=== PATIENT | female | born 1990 | race Two or more races ===

== ENCOUNTER 2019-10-28 06:33 | Inpatient (IN) | payer OTHER, BC ==
[~2019-10-28] VITALS: Ht 157.5 cm; Wt 62.7 kg
[2019-10-28] MEDS: OXYTOCIN 30U/ 0.9% NaCL 500ML 500 ML IV SCH (00:45)
[2019-10-28 07:43] VITALS: BP 111/70
[2019-10-28] MEDS ORDERED: OXYTOCIN 30U/ 0.9% NaCL 500ML 500 ML IV ONE (08:08)
[2019-10-28] MEDS ORDERED: OXYTOCIN 30U/ 0.9% NaCL 500ML 500 ML IV PRN (08:08)
[2019-10-28] MEDS ORDERED: TERBUTALINE 1 MG/ML, 1ML SQ PRN (08:30)
[2019-10-28] MEDS ORDERED: TERBUTALINE 1 MG/ML, 1ML IVPush PRN (08:30)
[2019-10-28] MEDS ORDERED: ONDANSETRON 2MG/ML, 2ML IVPush PRN (08:30)
[2019-10-28] MEDS: LACTATED RINGERS 1,000 ML IV SCH ×2 (08:51→16:00)
[2019-10-28] MEDS ORDERED: LIDOCAINE 1%, 20ML ONE ×2 (08:54→16:05)
[2019-10-28] MEDS ORDERED: OXYTOCIN 30U/ 0.9% NaCL 500ML 500 ML ONE ×2 (08:54→22:40)
[2019-10-28] MEDS ORDERED: NEWBORN KIT ONE (08:55)
[2019-10-28] MEDS ORDERED: MISOPROSTOL 200 MCG TABLET ONE (08:55)
[2019-10-28 09:02] LABS: BASOPHILS # (AUTO) 0.06 x10^3/uL (0-0.1); BASOPHILS % (AUTO) 1 % (0-1); EOSINOPHILS % (AUTO) 1 % (1-7); LYMPHOCYTES # (AUTO) 1.57 x10^3/uL (1-3.4); LYMPHOCYTES % (AUTO) 16 % (22-44); MD NO; MEAN CORPUSCULAR HEMOGLOBIN 29.2 pg (27.0-34.8); MEAN CORPUSCULAR HGB CONC 32.3 g/dL (32.4-35.8); MEAN CORPUSCULAR VOLUME 90.2 fL (80-100); MEAN PLATELET VOLUME 8.5 fL (7.4-10.4); MONOCYTES % (AUTO) 6 % (2-9); NEUTROPHILS # (AUTO) 7.81 x10^3/uL (1.8-6.8); NEUTROPHILS % (AUTO) 77 % (42-75); PLATELET COUNT 253 x10^3/uL (130-400); RED BLOOD COUNT 4.76 x10^6/uL (3.82-5.3); RED CELL DISTRIBUTION WIDTH 16.8 % (9.6-15.2)
[2019-10-28] MEDS ORDERED: FENTANYL PF 100 MCG/2ML ONE ×2 (12:13→14:04)
[2019-10-28] MEDS: FENTANYL PF 100 MCG/2ML IVPush PRN ×2 (12:14→14:06)
[2019-10-28] MEDS ORDERED: FENTANYL/BUPIV./NS/PF 250 ML EPIDCONT ONE (16:03)
[2019-10-28] MEDS ORDERED: LIDOCAINE/PF 1.5%-EPI 1:200K, 30ML ONE (16:05)
[2019-10-28] MEDS ORDERED: D5%-LACTATED RINGERS 1,000 ML IV SCH (19:31)
[2019-10-28] MEDS ORDERED: ACETAMINOPHEN 325 MG TABLET ONE (19:47)
[2019-10-28] MEDS ORDERED: AMPICILLIN 2 GM in SODIUM CHLORIDE 0.9% 100 ML IV ONE (20:00)
[2019-10-28] MEDS ORDERED: ACETAMINOPHEN 325 MG TABLET PO PRN ×3 (20:00→22:30)
[2019-10-28] MEDS ORDERED: METHYLERGONOVINE 0.2 MG/ML IM PRN (22:30)
[2019-10-28] MEDS ORDERED: MISOPROSTOL 200 MCG TABLET PR PRN (22:30)
[2019-10-28] MEDS ORDERED: DOCUSATE 100 MG CAPSULE PO PRN (22:30)
[2019-10-28] MEDS ORDERED: ONDANSETRON 2MG/ML, 2ML IV PRN (22:30)
[2019-10-28] MEDS ORDERED: RHOGAM FROM BLOOD BANK 1 NOTE EA IM/IV ONE (22:30)
[2019-10-28] MEDS ORDERED: SIMETHICONE 80 MG CHEW TAB PO PRN (22:30)
[2019-10-28] MEDS ORDERED: HYDROcodone/APAP 5/325 TABLET PO PRN ×2 (22:30)
[2019-10-28] MEDS ORDERED: CARBOPROST TROMETHAMINE 250 MCG/ML, 1ML IM PRN (22:30)
[2019-10-29 00:45] VITALS: BP 101/52
[2019-10-29] MEDS: LACTATED RINGERS 1,000 ML IV SCH ×3 (00:45→16:08)
[2019-10-29 03:00] VITALS: BP 99/60
[2019-10-29 06:45] LABS: MEAN CORPUSCULAR HEMOGLOBIN 29.5 pg (27.0-34.8); MEAN CORPUSCULAR HGB CONC 32.8 g/dL (32.4-35.8); MEAN CORPUSCULAR VOLUME 90.1 fL (80-100); MEAN PLATELET VOLUME 8.4 fL (7.4-10.4); PLATELET COUNT 190 x10^3/uL (130-400); RED BLOOD COUNT 4.45 x10^6/uL (3.82-5.3); RED CELL DISTRIBUTION WIDTH 16.5 % (9.6-15.2)
[2019-10-29 07:13] LABS: BASOPHILS # (AUTO) 0.07 x10^3/uL (0-0.1); BASOPHILS % (AUTO) 0 % (0-1); EOSINOPHILS # (AUTO) 0.05 x10^3/uL (0-0.4); EOSINOPHILS % (AUTO) 0 % (1-7); LYMPHOCYTES # (AUTO) 1.52 x10^3/uL (1-3.4); LYMPHOCYTES % (AUTO) 8 % (22-44); MD SCAN; MONOCYTES # (AUTO) 1.22 x10^3/uL (0.2-0.8); MONOCYTES % (AUTO) 7 % (2-9); NEUTROPHILS # (AUTO) 15.38 x10^3/uL (1.8-6.8); NEUTROPHILS % (AUTO) 84 % (42-75)
[2019-10-29] MEDS: IBUPROFEN 600 MG TABLET PO PRN ×2 (07:53→22:45)
[2019-10-29] MEDS: PRENATAL VIT/IRON/FA 1 EACH TABLET PO SCH (07:54)
[2019-10-29] MEDS: OXYTOCIN 30U/ 0.9% NaCL 500ML 500 ML IV SCH ×2 (08:25→18:25)
[2019-10-29 09:15] VITALS: BP 99/61
[2019-10-29] MEDS: AMOXICILLIN 500 MG CAPSULE PO SCH ×3 (11:06→21:18)
[2019-10-29 12:00] VITALS: BP 99/65
[2019-10-29 16:00] VITALS: BP 118/77
[2019-10-29] MEDS ORDERED: RHOGAM FROM BLOOD BANK 1 NOTE EA IM/IV ONE (17:00)
[2019-10-29 20:00] VITALS: BP 108/69
[2019-10-29] MEDS ORDERED: AMOXICILLIN 500 MG CAPSULE ONE (21:17)
[2019-10-30] MEDS: LACTATED RINGERS 1,000 ML IV SCH ×2 (00:08→08:08)
[2019-10-30] MEDS: OXYTOCIN 30U/ 0.9% NaCL 500ML 500 ML IV SCH (03:37)
[2019-10-30 07:05] VITALS: BP 109/66
[2019-10-30] MEDS: PRENATAL VIT/IRON/FA 1 EACH TABLET PO SCH (08:09)
[2019-10-30] MEDS: AMOXICILLIN 500 MG CAPSULE PO SCH (08:09)
[2019-10-30] MEDS ORDERED: AMOX-291 PO (09:33)
[2019-10-30] MEDS ORDERED: DIPH,PERTUSS(ACELL),TET VAC/PF NC IM-VACC ONE (10:00)
== END 2019-10-30 13:35 | disposition home or self-care (01) | DRG 807 ==
LOC: LDOP 06:33 → LDIP 08:16 → 2NW 10-29 00:15
PROVIDERS: ADMIT Obstetrics & Gynecology; ATTEND Obstetrics & Gynecology
PROC: 10E0XZZ Delivery of Products of Conception, External Approach (ICD-10-PCS; principal; 2019-10-28)
PROC: 3E0234Z Introduction of Serum, Toxoid and Vaccine into Muscle, Percutaneous Approach (ICD-10-PCS; 2019-10-28)
PROC: 3E0R3BZ Introduction of Anesthetic Agent into Spinal Canal, Percutaneous Approach (ICD-10-PCS; 2019-10-28)
PROC: 00HU33Z Insertion of Infusion Device into Spinal Canal, Percutaneous Approach (ICD-10-PCS; 2019-10-28)
DX: O26.893 Other specified pregnancy related conditions, third trimester (principal); Z37.0 Single live birth; Z3A.39 39 weeks gestation of pregnancy; Z67.31 Type AB blood, Rh negative
CPT/HCPCS: 36415; J3490; J7121; 84112; 85025; 85461; 86592; 86850; 86900; 87070; 87075; 87205; 90715; G0378; J0290; J2790; J3010; J2590; J7120

== ENCOUNTER 2019-11-03 04:45 | Emergency (ER) | payer OTHER, BC ==
[~2019-11-03] VITALS: Ht 157.5 cm; Wt 57.2 kg
[~2019-11-03 04:45] MED LIST: AMOX-291 PO
--- NOTE | 2019-11-03 05:06 | NUR ---
PT REPORTS HEAVY VAGINAL BLEEDING WITH CLOTS SINCE AROUND 0400, ALSO C/O LIGHT DIZZINESS AND ABD PAIN. HAD VAGINAL DELIVERY ON 10/28/2019. PLACED PT ON CARDIAC AND VITALS SIGNS MONITOR.
--- NOTE | 2019-11-03 05:24 | NUR ---
PT TAKEN TO ULTRASOUND.
--- NOTE | 2019-11-03 06:16 | NUR ---
URINE SAMPLE COLLECTED. LAB AT BEDSIDE.
[2019-11-03 06:33] LABS: BASOPHILS # (AUTO) 0.05 x10^3/uL (0-0.1); BASOPHILS % (AUTO) 1 % (0-1); EOSINOPHILS # (AUTO) 0.26 x10^3/uL (0-0.4); EOSINOPHILS % (AUTO) 3 % (1-7); LYMPHOCYTES # (AUTO) 1.69 x10^3/uL (1-3.4); LYMPHOCYTES % (AUTO) 18 % (22-44); MD NO; MEAN CORPUSCULAR HEMOGLOBIN 29.2 pg (27.0-34.8); MEAN CORPUSCULAR HGB CONC 32.1 g/dL (32.4-35.8); MONOCYTES # (AUTO) 0.65 x10^3/uL (0.2-0.8); MONOCYTES % (AUTO) 7 % (2-9); NEUTROPHILS # (AUTO) 6.67 x10^3/uL (1.8-6.8); NEUTROPHILS % (AUTO) 72 % (42-75); PLATELET COUNT 227 x10^3/uL (130-400); RED BLOOD COUNT 4.62 x10^6/uL (3.82-5.3); RED CELL DISTRIBUTION WIDTH 15.9 % (9.6-15.2)
[2019-11-03 06:39] LABS: MICROSCOPIC AUTO
--- NOTE | 2019-11-03 06:51 | NUR ---
RECEIVED REPORT FROM NAOMI
--- NOTE | 2019-11-03 07:01 | NUR ---
PT UPRIGHT ON GURNEY AWAKE & CALM, [place]-SPEAKING BUT RESPONDS APPROP TO STAFF, NAD, COMFORT MEASURES PROVIDED, AT BS, CALL LIGHT WITHIN REACH.
--- NOTE | 2019-11-03 07:42 | NUR ---
dr rico spoke with dr summers home service consultant for dr nagel
[2019-11-03] MEDS ORDERED: MISOPROSTOL 200 MCG TABLET PR ONE (08:00)
[2019-11-03] MEDS ORDERED: METHYLERGONOVINE 0.2 MG/ML IM PRN (08:00)
--- NOTE | 2019-11-03 08:00 | NUR ---
PT UPRIGHT ON GURNEY AWAKE & CALM, [place]-SPEAKING BUT RESPONDS APPROP TO STAFF, NAD, COMFORT MEASURES PROVIDED INCL PERICARE & LINEN/GOWN CHANGE, AT BS, CALL LIGHT WITHIN REACH.
[2019-11-03] MEDS ORDERED: TRANEXAMIC ACID 1,000 MG in SODIUM CHLORIDE 0.9% 100 ML IV ONE (08:30)
--- NOTE | 2019-11-03 09:01 | NUR ---
PT REMAINS UPRIGHT ON GURNEY AWAKE & CALM, RESPONDS APPROP TO STAFF, NAD, COMFORT MEASURES PROVIDED INCL PERICARE & PAD CHANGE, AT BS, CALL LIGHT WITHIN REACH.
[2019-11-03 09:07] LABS: BASOPHILS # (AUTO) 0.01 x10^3/uL (0-0.1); BASOPHILS % (AUTO) 0 % (0-1); EOSINOPHILS # (AUTO) 0.21 x10^3/uL (0-0.4); EOSINOPHILS % (AUTO) 2 % (1-7); LYMPHOCYTES # (AUTO) 1.55 x10^3/uL (1-3.4); LYMPHOCYTES % (AUTO) 17 % (22-44); MD NO; MEAN CORPUSCULAR HEMOGLOBIN 29.2 pg (27.0-34.8); MEAN CORPUSCULAR HGB CONC 32.4 g/dL (32.4-35.8); MEAN PLATELET VOLUME 7.7 fL (7.4-10.4); MONOCYTES # (AUTO) 0.38 x10^3/uL (0.2-0.8); MONOCYTES % (AUTO) 4 % (2-9); NEUTROPHILS # (AUTO) 7.26 x10^3/uL (1.8-6.8); NEUTROPHILS % (AUTO) 77 % (42-75); PLATELET COUNT 215 x10^3/uL (130-400); RED BLOOD COUNT 4.58 x10^6/uL (3.82-5.3); RED CELL DISTRIBUTION WIDTH 15.7 % (9.6-15.2)
[2019-11-03 09:52] VITALS: BP 136/68
--- NOTE | 2019-11-03 10:16 | NUR ---
TASK RN: Patient/Caregiver given discharge instructions and they have confirmed that they understand the instructions. Patient ambulatory with steady gait.
== END 2019-11-03 10:17 | disposition home or self-care (01) ==
LOC: ED 07:16
DX: N92.0 Excessive and frequent menstruation with regular cycle (principal); R10.9 Unspecified abdominal pain; R42 Dizziness and giddiness
CPT/HCPCS: 36415; 76830; 81001; 85025; 86901; 96365; 96366; 96372; 99285; J2210

== ENCOUNTER 2020-03-25 05:51 | Day surgery (SDC) | payer OTHER, BC ==
[2020-03-22 16:07] LABS: BASOPHILS % (AUTO) 1 % (0-1); EOSINOPHILS % (AUTO) 2 % (1-7); LYMPHOCYTES % (AUTO) 32 % (22-44); MD NO; MEAN CORPUSCULAR HEMOGLOBIN 28.6 pg (27.0-34.8); MEAN CORPUSCULAR HGB CONC 33.4 g/dL (32.4-35.8); MEAN PLATELET VOLUME 9.3 fL (7.4-10.4); MONOCYTES % (AUTO) 7 % (2-9); NEUTROPHILS % (AUTO) 58 % (42-75); PLATELET COUNT 303 x10^3/uL (130-400); RED BLOOD COUNT 4.88 x10^6/uL (3.82-5.3); RED CELL DISTRIBUTION WIDTH 12.6 % (9.6-15.2)
[~2020-03-25] VITALS: Ht 153.7 cm; Wt 52.2 kg
[2020-03-25 06:24] VITALS: BP 110/76
[2020-03-25] MEDS ORDERED: LACTATED RINGERS 1,000 ML IV SCH (06:26)
[2020-03-25] MEDS ORDERED: CHLORHEXIDINE 15 ML UDC MM STA (06:26)
[2020-03-25] MEDS ORDERED: CHLORHEXIDINE 15 ML UDC ONE (06:33)
[2020-03-25] MEDS ORDERED: BUPIVACAINE/PF 0.25% ONE (07:01)
[2020-03-25] MEDS ORDERED: EPINEPHRINE 1 MG/ML, 1ML ONE (07:01)
[2020-03-25] MEDS ORDERED: SILVER NITRATE STICK TP ONE (07:01)
[2020-03-25] MEDS ORDERED: MIDAZOLAM 1 MG/ML, 2ML ONE (07:14)
[2020-03-25] MEDS ORDERED: LIDOCAINE-MPF 2% ,5ML ONE (07:14)
[2020-03-25] MEDS ORDERED: FENTANYL PF 100 MCG/2ML ONE (07:14)
[2020-03-25] MEDS ORDERED: CEFAZOLIN 1,000 MG ONE (08:09)
[2020-03-25] MEDS ORDERED: PROPOFOL 10 MG/ML, 20ML ONE (08:09)
[2020-03-25] MEDS ORDERED: NEOSTIGMINE 1 MG/ML, 10ML ONE (08:09)
[2020-03-25] MEDS ORDERED: GLYCOPYRROLATE 0.2MG/1ML, 5ML ONE (08:09)
[2020-03-25] MEDS ORDERED: ONDANSETRON 2MG/ML, 2ML ONE (08:09)
[2020-03-25] MEDS ORDERED: DEXAMETHASONE 4 MG/ML, 1ML ONE (08:09)
[2020-03-25] MEDS ORDERED: ROCURONIUM 10MG/ML,5ML ONE (08:09)
[2020-03-25] MEDS ORDERED: LORazepam 2 MG/ML, 1ML IVPush PRN (08:30)
[2020-03-25] MEDS ORDERED: ACETAMINOPHEN 325 MG TABLET PO PRN (08:30)
[2020-03-25] MEDS ORDERED: LABETALOL 5MG/ML, 20ML IV PRN (08:30)
[2020-03-25] MEDS ORDERED: METHOCARBAMOL 1,000 MG in DEXTROSE 5% 100 ML IV PRN (08:30)
[2020-03-25] MEDS ORDERED: MEPERIDINE/PF 25MG/0.5ML IVPush PRN (08:30)
[2020-03-25] MEDS ORDERED: hydrALAzine 20 MG/ML, 1ML IV PRN (08:30)
[2020-03-25] MEDS ORDERED: OXYcodone 5 MG/5 ML ORAL.SOL UDC PO PRN (08:30)
[2020-03-25] MEDS ORDERED: PROMETHAZINE 25 MG/ML, 1ML IVPush PRN (08:30)
[2020-03-25] MEDS ORDERED: FENTANYL PF 100 MCG/2ML IV PRN (08:30)
[2020-03-25] MEDS ORDERED: ACETAMINOPHEN 650 MG/20.3 ML UDC ONE (08:53)
== END 2020-03-25 11:15 | disposition home or self-care (01) ==
LOC: OUT 05:51
PROVIDERS: ATTEND Obstetrics & Gynecology
DX: Z30.2 Encounter for sterilization (principal); Z20.828 Contact with and (suspected) exposure to other viral communicable diseases; Z79.3 Long term (current) use of hormonal contraceptives
CPT/HCPCS: 36415; 58670; 84703; 85025; 86850; 86900; 87635; 88302; J0171; J0690; J1100; J2250; J2405; J2704; J2710; J3010; J7120; U0003